=== PATIENT | female | born 1985 | race Hispanic/Latino ===

== ENCOUNTER 2025-04-06 13:08 | Emergency (ER) | payer OTHER, SELFPAY ==
[2025-04-06 13:23] VITALS: BP 195/112
[2025-04-06 13:43] LABS: Hematocrit 39.5 % (37.0-47.0); Hemoglobin 12.7 g/dL (12.0-16.0); Mean Corp Hgb Conc. 32.2 g/dL (33.0-37.0); Mean Corpuscular Volume 85.9 fL (81.0-99.0); Nucleated Red Blood Cells % 0 %; Platelet Count 274 10^3/uL (130-400); Red Cell Dist. Width 14.6 % (11.5-14.5)
[2025-04-06 13:57] LABS: HCG, Serum Qualitative Screen Negative
[2025-04-06 14:04] LABS: ALT (SGPT) 35 U/L (0-35); AST (SGOT) 25 U/L (14-36); Albumin 4.6 g/dl (3.5-5.0); Alkaline Phosphatase 59 U/L (38-126); Blood Urea Nitrogen 15 mg/dl (7-17); Calcium 9.3 mg/dl (8.4-10.2); Carbon Dioxide 27 mmol/L (22-30); Chloride 104 mmol/L (98-107); Glucose 97 mg/dl (70-99); Potassium 4.3 mmol/L (3.5-5.1); Sodium 137 mmol/L (135-145); Total Protein 7.6 g/dl (6.3-8.2); eGFR > 60.00
[2025-04-06 14:06] LABS: Troponin I < 0.012 ng/ml
[2025-04-06 15:00] VITALS: BP 152/92
--- NOTE | 2025-04-06 15:40 | ED.GENMED ---
History of Present Illness
General
Chief Complaint: Chest Pain
Source: patient and diplomatic interpreter/translator (Language line, Maryjo)
Time Seen by Provider: 04/06/25 15:03
History of Present Illness
History of Present Illness:
Patient presents to the emergency department with hypertension. She notes that she was sent in by her employer after they checked her blood pressure and found it to be elevated. She was getting a medical checkup for lower back pain that she was
having after being injured at work. She states that a week railing struck her in the lower mid back. She endorses intermittent episodes of chest pain but none currently. Denies any medical history that she is aware of. Does not have a primary
doctor.
Phy Exam
Physical Exam
Physical Exam:
GENERAL APPEARANCE: NAD, well developed/ well nourished
EYES lids/conjunctiva normal
EARS/NOSE/THROAT Mucous membranes moist, uvula midline without oral pharyngeal erythema, exudate or swelling
HEAD/NECK normocephalic atraumatic, neck is supple.
RESPIRATORY respiratory effort normal, speaks in full sentences, no accessory muscle use. Lungs clear to auscultation without rhonchi, wheezes, rales
CARDIAC Regular rate and rhythm, no edema.
ABDOMINAL Soft, ND/NT. No pulsatile masses on exam, rebound tenderness, Collado sign or pain over Mcburney's point.
MUSCLES/EXTREMITIES No abnormal range of motion, no swelling.
SKIN Warm, pink and dry. No rashes
NEUROLOGICAL Speech is clear and appropriate. Normal level of consciousness. 5/5 strength in all extremities.
PSYCH Normal mood and affect. Judgement/competence is appropriate
Scores
Heart Score for Chest Pain Patients
STEMI patient?: Not applicable
Course
Orders/Labs/Results
Orders:
Orders
04/06/25 13:10
ECG [Electrocardiogram (*1)] Urgent
Reason for Study: Chest Pain
EKG- Treatment ONCE
04/06/25 13:23
Test Result ONCE
04/06/25 13:29
Comprehensive Metabolic Panel Urgent
HCG, Serum Qualitative Screen Urgent
04/06/25 13:30
Complete Blood Count/With Diff Urgent
Troponin I Urgent
04/06/25 14:49
CR Chest - 2 Views Urgent
Comment:
Reason For Exam: chest pain
04/06/25 15:20
CR Lumbar Spine Comp Min 4 Vw* Urgent
Comment:
Reason For Exam: injury midline pain
04/06/25 15:55
Electrocardiogram (*1) Stat
Reason for Study: Other
Other Reason for Exam: chest pain
04/06/25 15:56
Amlodipine [Norvasc] 5 mg PO ONCE ONE
04/06/25 16:15
Troponin I Urgent
04/06/25 19:02
Diphenhydramine [Benadryl Elixir] 25 mg .ROUTE .STK-MED ONE
Abnormal Lab Results
04/06/25 04/06/25
13:29 13:30
MCHC 32.2 L g/dL
(33.0-37.0)
RDW 14.6 H %
(11.5-14.5)
Absolute Neuts (auto) 6.7 H 10^3/uL
(1.4-6.5)
Absolute Monos (auto) 0.7 H 10^3/uL
(0.1-0.6)
Creatinine 0.5 L mg/dL
(0.6-1.0)
04/06/25 13:30
04/06/25 13:29
Vital Signs
Initial and Last Documented VS:
Initial Vital Signs
Temp Pulse Resp BP Pulse Ox
98.0 F 70 16 195/112 100
04/06/25 13:23 04/06/25 13:23 04/06/25 13:23 04/06/25 13:23 04/06/25 13:23
Last Documented Vital Signs
Temp Pulse Resp BP Pulse Ox
98.0 F 72 21 150/94 98
04/06/25 13:23 04/06/25 18:15 04/06/25 18:15 04/06/25 18:00 04/06/25 18:15
*Pulse Oximetry
SaO2: 100
Oxygen Mode of Delivery: Room air
Patient hypoxic: no
*Critical Care Note
Total Time (30-74mins, 75-104mins- exclusive of procedures): Not Applicable
ED Attending Note
ED Attending Note
ED Attending Note:
Patient presents with asymptomatic hypertension. She now has multiple elevated blood pressure measurements. EKG notable for inferior T wave inversions. No prior EKG to compare. she has no ongoing anginal symptoms, therefore suspect these changes
are not acute. However, will recheck troponin and EKG to ensure there is no dynamic changes. Will refer to cardiology as an outpatient. Will start on an antihypertensive until she is able to follow-up with a primary care doctor.
-
Portions of this chart may have been created with voice recognition software.� Occasional wrong word or��sound alike� substitutions may have occurred due to the inherent limitations of voice recognition software.
Discharge Plan
Departure
Patient Disposition: Home (Routine Discharge)
Date of Disposition: 04/06/25
Time of Disposition: 17:56
Patient with high blood pressure during this ER visit?: Yes
Discharge Problem:
Hypertension, Abnormal ECG
Instructions: Chest Pain PCP Follow Up, BLOOD PRESSURE
Prescriptions:
New
amlodipine 5 mg tablet
5 mg PO DAILY Qty: 30 0RF
Referrals:
NONE,* [Family Provider, Internal Medicine]
Armen Henley MD [Active, Cardiology]
Stand Alone Forms: Return to Work
Activity Restrictions/Additional Instructions:
Por favor, comience con 5 mg de amlodipino azeem vez al d�a. Llame al cardi�logo para seguimiento ambulatorio.
Interventions
Interventions:
*General Assessment Last Done: 04/06/25 15:07
*Neglect/Abuse Screening Last Done: 04/06/25 18:33
*ED- Fall Risk Assessment Last Done: 04/06/25 15:07
*ED COVID-19 Vaccine History Last Done: 04/06/25 15:07
*Nursing Disposition Last Done: 04/06/25 18:35
ED- Cardiac Assessment Last Done: 04/06/25 14:54
Discharge Date and Time
Discharge Date/Time: 04/06/25 18:36
Print Language: ALBAN[place]
[2025-04-06 16:01] VITALS: BP 168/83
[2025-04-06] MEDS: NORVASC 5 MG PO (16:04)
[2025-04-06 16:50] LABS: Troponin I < 0.012 ng/ml
[2025-04-06 17:00] VITALS: BP 167/100
[2025-04-06 17:41] VITALS: BP 155/81
[2025-04-06 18:00] VITALS: BP 150/94
== END 2025-04-06 18:36 | disposition home or self-care (01) ==
LOC: EMR 13:08
PROVIDERS: Emergency Medicine; EMERGENCY PHYSICIAN Emergency Medicine
DX: I10 Essential (primary) hypertension (principal); R94.31 Abnormal electrocardiogram [ECG] [EKG]
CPT/HCPCS: 99284; 71046; 72110; 80053; 84484; 84703; 85025; 93005